=== PATIENT | male | born 1995 | race Caucasian/White ===

== ENCOUNTER 2023-09-19 01:55 | Emergency (ER) | payer BC ==
[~2023-09-19] VITALS: Ht 175.3 cm; Wt 68.0 kg
[2023-09-19 02:08] VITALS: O2SAT 99
[2023-09-19] MEDS: LIDOCAINE HCL/EPINEPHRINE 1%-EPI 1:100,000 20 ML VIAL INFIL ONE (02:30)
[2023-09-19] MEDS: TETANUS, DIPHTHERIA, PERTUSSIS VAC/PF 0.5ML (>10YR OLD) IM ONE (03:31)
[2023-09-19 06:15] VITALS: BP 110/88; PULSE 95; RESP 18; TEMP 98
== END 2023-09-19 06:23 | disposition home or self-care (01) ==
LOC: ER 02:23
DX: S01.511A Laceration without foreign body of lip, initial encounter (principal); X58.XXXA Exposure to other specified factors, initial encounter; Y93.89 Activity, other specified; Y92.89 Other specified places as the place of occurrence of the external cause; Y99.8 Other external cause status
CPT/HCPCS: 70450; 70486; 90715; 90471; 99285; J3490; Z7610 ×3